=== PATIENT | male | born 1970 | race Caucasian/White ===

== ENCOUNTER 2023-12-17 00:04 | Emergency (ER) | payer OTHER ==
[~2023-12-17] VITALS: Ht 167.6 cm; Wt 70.8 kg
--- NOTE | 2023-12-17 00:45 | ERN ---
ED Note History of Present Illness Stated Complaint: SEIZURE, CHILLS, VOMITING Chief Complaint: Seizure Time Seen by MD: 00:28 Dictation: PATIENT IS A 53-YEAR-OLD MALE COMING IN FROM A LOCAL CARE HOME SYSTEM WITH COMPLAINTS OF HAVING A WITNESSED 1 MINUTE SEIZURE 1 HOUR PRIOR TO ARRIVAL. HE WAS FOUND ON THE GROUND SEIZURE LASTED APPROXIMATE 1 MINUTE WITH NO POSTICTAL ACTIVITY. PATIENT IS ALERT AND ORIENTED X4 NOW, STATES HE TAKES DILANTIN HOWEVER HAS NOT BEEN ON IT IN SEVERAL MONTHS. HE DENIES NO COMPLAINTS OF PAIN AT THIS TIME NO CHEST PAIN NO BACK PAIN. Allergies: Coded Allergies: No Known Drug Allergies (Unverified Allergy, Unknown, 12/17/23) Past Medical History Past Medical History: Seizure Additional Past Medical Hx: SUBSTANCE ABUSE Surgical History: None PSYCH History: no pertinent psych hx RN Note Reviewed/Agreed w/PFSH: Yes Review of System Dictation CONSTITUTIONAL: NEGATIVE EXCEPT FOR HPI HEAD/FACE: NEGATIVE EXCEPT FOR HPI EENT: NEGATIVE EXCEPT FOR HPI RESPIRATORY: NEGATIVE EXCEPT FOR HPI GASTROINTESTINAL/ABDOMINAL: NEGATIVE EXCEPT FOR HPI GENITOURINARY: NEGATIVE EXCEPT FOR HPI MUSCULOSKELETAL: NEGATIVE EXCEPT FOR HPI INTEGUMENTARY: NEGATIVE EXCEPT FOR HPI NEUROLOGICAL/PSYCH: NEGATIVE EXCEPT FOR HPI SEIZURE HEMATOLOGIC/LYMPHATIC: NEGATIVE EXCEPT FOR HPI ALL SYSTEMS NEGATIVE, EXCEPT NOTED ABOVE. 13 POINT REVIEW OF SYSTEMS ASSESSED AND ALL NEGATIVE EXCEPT FOR ABOVE. Initial Vital Sign VS Vital Signs Date Time Temp Pulse Resp B/P (MAP) Pulse Ox O2 Delivery O2 Flow Rate FiO2 12/17/23 00:06 96.1 101 16 129/86 98 Room Air* 0 21 Physical Exam Dictation VITAL SIGNS REVIEWED GENERAL APPEARANCE: ALERT, ORIENTED X 3, NO ACUTE DISTRESS, WELL DEVELOPED, NOURISHED. HEAD AND FACE: NON-TRAUMATIC. EYES: PERRL, PINK CONJUNCTIVAS, EYELID NO TRAUMA, ANTERIOR CHAMBER WITH ARCUS SENILIS. EARS: PINNAS INTACT AND NO SIGNS OF TRAUMA OR ERYTHEMA EAR CANALS CLEAR AND NO DISCHARGE TM NO ERYTHEMA NOSE: NO DISCHARGE, NO BLEEDING. OROPHARYNX: MOUTH NORMAL, TONGUE PINK, PHARYNX CLEAR,NO ERYTHEMA, TONSILS NO EXUDATES, NO ABSCESSES NOTED, MUCOUS MEMBRANE MOIST NECK: SUPPLE, NON-TENDER, NO THYROMEGALY, NO MASSES, NO JVD, NO BRUITS BREAST:DEFERRED CHEST:NO TENDERNESS, NO CREPITUS, NO PARADOXICAL MOVEMENT, NO RETRACTIONS LUNGS:CLEAR, WELL-VENTILATED, SYMMETRIC, NO RALES, NO WHEEZING, NO RHONCHI, NO STRIDOR, GOOD BREATH SOUNDS BILATERALLY HEART: REGULAR RATE, REGULAR RHYTHM, NO MURMUR, NO GALLOPS VASCULAR: NO PERIPHERAL EDEMA, ABDOMEN: SOFT, POSITIVE BOWEL SOUNDS, NONDISTENDED, NO GUARDING, NONTENDER, NO REBOUND, NO MASSES NO HEPATOMEGALY, NO SPLENOMEGALY, NO DUTTA'S SIGN, NO HERNIAS. RECTAL: DEFERRED GENITAL: DEFERRED NEUROLOGICAL: NORMAL SPEECH, MOTOR FUNCTION INTACT, SENSORY FUNCTION INTACT MUSCULOSKELETAL: NECK NONTENDER, FULL RANGE OF MOTION, BACK NONTENDER, FULL RANGE OF MOTION, EXTREMITIES: NONTENDER, FULL RANGE OF MOTION SKIN: COLOR PINK, DRY, NO TURGOR, NO RASH, NO LACERATIONS, NO ABRASIONS, NO CONTUSIONS. LYMPHATIC: DEFERRED Results (Laboratory/Radiology) Laboratory/Radiology Laboratory Tests Test 12/17/23 00:32 White Blood Count 7.7 K/uL (4.8-10.8) Red Blood Count 4.95 MIL/uL (4.50-6.20) Hemoglobin 14.8 g/dL (14.0-18.0) Hematocrit 41.7 % (42-54) L Mean Corpuscular Volume 84.2 fL (79-99) Mean Corpuscular Hemoglobin 29.9 pg (27.0-33.0) Mean Corpuscular Hemoglobin Concent 35.5 g/dL (32.0-36.0) Red Cell Distribution Width 11.9 % (11.0-15.5) Platelet Count 213 K/uL (130-400) Mean Platelet Volume 10.6 fL (7.5-10.5) H Immature Granulocyte % (Auto) 0.4 % (0-1) Neutrophils (%) (Auto) 73.1 % (40.0-77.0) Lymphocytes (%) (Auto) 20.8 % (21.0-51.0) L Monocytes (%) (Auto) 4.9 % (3.0-13.0) Eosinophils (%) (Auto) 0.4 % (0.0-8.0) Basophils (%) (Auto) 0.4 % (0.0-5.0) Neutrophils # (Auto) 5.6 K/uL (1.8-7.7) Lymphocytes # (Auto) 1.6 K/uL (1.0-4.8) Monocytes # (Auto) 0.4 K/uL (0.1-1.0) Eosinophils # (Auto) 0.03 K/uL (0.00-0.70) Basophils # (Auto) 0.03 K/uL (0.00-0.20) Absolute Immature Granulocyte (auto 0.03 K/uL (0-1) Nucleated Red Blood Cells 0.0 % (0.0-0.19) Sodium Level 137 mmol/L (136-145) Potassium Level 3.5 mmol/L (3.5-5.1) Chloride Level 98 mmol/L (101-111) L Carbon Dioxide Level 23 mmol/L (21-32) Blood Urea Nitrogen 15 mg/dL (7-18) Creatinine 1.5 mg/dL (0.5-1.3) H Glomerular Filtration Rate Calc 55 mL/min (>90) Random Glucose 140 mg/dL (70-105) H Total Calcium 9.5 mg/dL (8.5-10.1) Total Bilirubin 0.7 mg/dL (0.2-1.0) Aspartate Amino Transf (AST/SGOT) 19 U/L (10-37) Alanine Aminotransferase (ALT/SGPT) 27 U/L (12-78) Alkaline Phosphatase 65 U/L (50-136) Total Protein 7.0 g/dL (6.0-8.3) Albumin 3.8 g/dL (3.5-5.0) Lipase 48 U/L (16-77) Labs Reviewed?: Yes ED Course ED Course Orders Procedure Category Date Status Time Cbc With Differential LAB 12/17/23 Complete 00:08 Comprehensive LAB 12/17/23 Complete Metabolic Panel 00:08 Lipase LAB 12/17/23 Complete 00:08 Urinalysis Profile LAB 12/17/23 Logged 00:08 Phenytoin 100mg PHA 12/17/23 Complete (50mg/Ml) Inj 01:00 Ondansetron 4mg Inj PHA 12/17/23 Complete (Zofran 4mg Inj) 01:00 Phenytoin Sodium PHA 12/17/23 Complete 250mg (Dilantin 250mg 01:30 Current Medications Medications (Trade) Dose Ordered Sig/Foster Route PRN Reason Start Time Stop Time Status Last Admin Dose Admin Ondansetron HCl (zoFRAN 4MG INJ) 4 mg ONCE ONCE IVP 12/17/23 01:00 12/17/23 01:01 DC 12/17/23 00:58 Phenytoin Sodium (Dilantin 100mg Inj) 1,000 mg ONCE IV 12/17/23 01:00 12/17/23 01:09 DC Phenytoin Sodium 1000 mg/Sodium Chloride 200 ml @ 400 mls/hr ONCE ONCE INJ 12/17/23 01:30 12/17/23 01:59 DC 12/17/23 01:28 Vital Signs Date Time Temp Pulse Resp B/P (MAP) Pulse Ox O2 Delivery O2 Flow Rate FiO2 12/17/23 00:07 96.1 101 16 129/86 98 Room Air 0 12/17/23 00:06 96.1 101 16 129/86 98 Room Air* 0 21 0215, patient received 1 g Dilantin IV piggyback. He will be discharged home with Dilantin three 100 mg t.i.d. and told to see his doctor Medical Decision Making MDM Medical discharge making based on basic labs and loading patient with 1 g Dilantin Patient will be discharged home with Dilantin 100 mg t.i.d. Medically cleared for incarceration and longterm DX & DISP Disposition: Discharge Departure Impression: Primary Impression: Seizure Additional Impressions: Medically noncompliant, Medical clearance for incarceration Condition: Stable Scripts Phenytoin Sodium Extended (Dilantin) 100 Mg Capsule 1 CAP PO TID for 30 Days, #90 CAP 0 Refills Prov: RICHAR GEE ALTERATION INSPECTOR 12/17/23 Additional Instructions: Follow-up with primary care provider in 1 to 2 days. Take medications as directed here in the emergency room. Okay to continue home medications unless otherwise discussed during your visit in the emergency room today. Return to your nearest emergency room if symptoms worsen or if there is no improvement. Call 911 if you need immediate assistance. Take Tylenol or Motrin [id number] as needed and if no contraindications are present. Increase oral hydration. A wound culture or urine culture was ordered here in the emergency room department please follow-up with primary care provider and advise them to get repeat ports from our facility. If you had any Alexey wrap/splints that were applied here, please do not remove them until you see your primary care or specialty. Take Dilantin 3 times a day as directed. Patient is medically cleared for incarceration and travel. Referrals: SELF,REFERRAL (PCP) Time of Disposition: 02:18 I have reviewed the case, and I agree with, Diagnosis and Plan RICHAR GEE ALTERATION INSPECTOR Dec 17, 2023 00:45
[2023-12-17 00:46] LABS: BASOPHILS # (AUTO) 0.03 K/uL (0.00-0.20); BASOPHILS % (AUTO) 0.4 % (0.0-5.0); EOSINOPHILS # (AUTO) 0.03 K/uL (0.00-0.70); EOSINOPHILS % (AUTO) 0.4 % (0.0-8.0); HEMATOCRIT 41.7 % (42-54); IMMATURE GRANULOCYTE ABSOLUTE 0.03 K/uL (0-1); LYMPHOCYTES # (AUTO) 1.6 K/uL (1.0-4.8); LYMPHOCYTES % (AUTO) 20.8 % (21.0-51.0); MEAN CORPUSCULAR HEMOGLOBIN 29.9 pg (27.0-33.0); MEAN CORPUSCULAR HGB CONC 35.5 g/dL (32.0-36.0); MEAN CORPUSCULAR VOLUME 84.2 fL (79-99); MONOCYTES # (AUTO) 0.4 K/uL (0.1-1.0); MONOCYTES % (AUTO) 4.9 % (3.0-13.0); NEUTROPHILS # (AUTO) 5.6 K/uL (1.8-7.7); NEUTROPHILS % (AUTO) 73.1 % (40.0-77.0); PLATELET COUNT (AUTO) 213 K/uL (130-400); RED BLOOD CELL COUNT(AUTO) 4.95 MIL/uL (4.50-6.20); RED CELL DISTRIBUTION WIDTH 11.9 % (11.0-15.5); WHITE BLOOD COUNT (AUTO) 7.7 K/uL (4.8-10.8)
[2023-12-17 00:56] LABS: CREATININE 1.5 mg/dL (0.5-1.3); POTASSIUM 3.5 mmol/L (3.5-5.1)
[2023-12-17] MEDS: ondanSETRON 4MG INJ IVP ONE (00:58)
[2023-12-17] MEDS ORDERED: PHENYTOIN 100MG (50MG/ML) INJ 100 MG/2 ML ML IV SCH (01:00)
[2023-12-17 01:01] LABS: ALBUMIN 3.8 g/dL (3.5-5.0); BILIRUBIN,TOTAL 0.7 mg/dL (0.2-1.0)
[2023-12-17] MEDS: PHENYTOIN SODIUM INJ ONE (01:28)
[2023-12-17] MEDS: NACL 0.9% INJ ONE (01:28)
[2023-12-17] MEDS ORDERED: PHEN100C23 PO (02:19)
[2023-12-17 02:28] VITALS: BP 106/50; PULSE 98; RESP 18; TEMP 97.7; O2SAT 97
== END 2023-12-17 02:37 ==
LOC: EDH 00:04
DX: R56.9 Unspecified convulsions (principal); Z91.199 Patient's noncompliance with other medical treatment and regimen due to unspecified reason
CPT/HCPCS: 99284; 96374; 96375; 80053; 83690; 85025; 36415; J1165; J2405; J7050